=== PATIENT | female | born 1955 | race Caucasian/White ===

== ENCOUNTER 2016-09-26 05:31 | Emergency (ER) | payer BC ==
[2016-09-26 05:48] VITALS: RESP 18; TEMP 97.2; O2SAT 99
[2016-09-26] MEDS ORDERED: ONDANSETRON 4 MG ODT BU ONE (06:08)
[2016-09-26] MEDS ORDERED: KETOROLAC TROMETHAMINE 30 MG/ML SOL IM ONE (06:08)
[2016-09-26] MEDS ORDERED: APAP/HYDROCODONE 325/5 TAB PO ONE (06:08)
[2016-09-26] MEDS ORDERED: ONDANSETRON 4 MG ODT ONE (06:11)
[2016-09-26] MEDS ORDERED: KETOROLAC TROMETHAMINE 30 MG/ML SOL ONE (06:11)
[2016-09-26] MEDS ORDERED: APAP/HYDROCODONE 325/5 TAB ONE (06:20)
[2016-09-26 07:08] VITALS: BP 147/60; PULSE 65
== END 2016-09-26 07:10 | disposition home or self-care (01) ==
LOC: ED 05:31
DX: J01.90 Acute sinusitis, unspecified (principal)
CPT/HCPCS: 99283 ×2; J1885

== ENCOUNTER 2016-09-27 10:18 | Emergency (ER) | payer BC ==
[2016-09-27 10:50] VITALS: RESP 18
[2016-09-27] MEDS ORDERED: LABETALOL HYDROCHLORIDE 5 MG/ML SOL IV ONE ×2 (11:04→11:33)
[2016-09-27 11:25] LABS: CALCIUM 8.8 mg/dl (8.5-10.1)
[2016-09-27] MEDS ORDERED: ONDANSETRON 4 MG ODT BU ONE (11:33)
[2016-09-27] MEDS ORDERED: ONDANSETRON 4 MG ODT ONE (11:35)
[2016-09-27] MEDS: SODIUM CHLORIDE 0.9% FLUSH 10 ML SOL IV PRN ×3 (12:32→15:34)
[2016-09-27] MEDS ORDERED: HEPARIN SODIUM 5000 U/ML SOL IV ONE (12:37)
[2016-09-27] MEDS ORDERED: HYDROMORPHONE HCL 2 MG/ML 1 ML SOL IV ONE (12:38)
[2016-09-27] MEDS ORDERED: HYDROMORPHONE HCL 2 MG/ML 1 ML SOL ONE (12:42)
[2016-09-27] MEDS ORDERED: HEPARIN SODIUM 5000 U/ML SOL ONE (12:42)
[2016-09-27] MEDS ORDERED: HEPARIN SODIUM IV SCH (12:45)
[2016-09-27] MEDS ORDERED: HEPARIN SODIUM 5000 U/ML 25,000 U in DEXTROSE 250 ML 250 ML IV PRN (13:06)
[2016-09-27 13:20] VITALS: BP 132/76; PULSE 56; TEMP 96; O2SAT 94
== END 2016-09-27 14:02 | disposition short-term general hospital (02) ==
LOC: ED 10:18
DX: G08 Intracranial and intraspinal phlebitis and thrombophlebitis (principal)
CPT/HCPCS: 99285 ×3; 36415; 70450; 80048; 85610; 85730; 93005; J1170; J1644

== ENCOUNTER 2017-06-08 11:53 | Day surgery (SDC) | payer BC ==
[2017-06-08] MEDS ORDERED: PROPOFOL 500 MG/50 ML EMU IV ONE (12:16)
[2017-06-08] MEDS ORDERED: LIDOCAINE HCL 1% MPF SOL ONE ×2 (12:16→13:22)
[2017-06-08] MEDS ORDERED: MIDAZOLAM 2 MG/2 ML SOL ONE (12:16)
[2017-06-08] MEDS ORDERED: FENTANYL 100MCG/2ML SOL ONE (12:17)
[2017-06-08] MEDS ORDERED: BUPIVACAINE HCL 0.5% MPF 10 ML SOL ONE ×2 (13:23→13:26)
[2017-06-08] MEDS ORDERED: BUPIVACAINE LIPOSOME 20 ML SUS ONE (13:35)
[2017-06-08] MEDS ORDERED: ONDANSETRON HCL 4 MG/2 ML SOL ONE (13:45)
[2017-06-08] MEDS ORDERED: METOCLOPRAMIDE HYDROCHLORIDE 5 MG/ML SOL ONE (13:45)
[2017-06-08] MEDS ORDERED: PROPOFOL 10 MG/ML EMU IV ONE (14:21)
[2017-06-08 15:59] VITALS: RESP 20; TEMP 97; O2SAT 98
[2017-06-08 16:14] VITALS: BP 136/90; PULSE 54
== END 2017-06-08 16:30 | disposition home or self-care (01) ==
LOC: SURG 11:53
PROVIDERS: ATTEND Podiatrist
DX: M20.11 Hallux valgus (acquired), right foot (principal); M21.611 Bunion of right foot; M20.41 Other hammer toe(s) (acquired), right foot
CPT/HCPCS: J2250; J2405; J2765; J3010; L3260; A6402; J2001; J2704